=== PATIENT | female | born 1995 | race Caucasian/White ===

== ENCOUNTER 2020-10-28 07:21 | Emergency (ER) | payer OTHER ==
[~2020-10-28] VITALS: Ht 160 cm; Wt 54.4 kg
[2020-10-28] MEDS ORDERED: SERT100T PO (07:29)
--- NOTE | 2020-10-28 07:40 | NUR ---
at bedside for assessment
[2020-10-28] MEDS ORDERED: IV NORMAL SALINE 1000 ML BAG IV ONE ×2 (07:45→08:30)
[2020-10-28] MEDS ORDERED: KETOROLAC TROMETHAMINE 30 MG INJ IVP ONE (07:45)
[2020-10-28] MEDS ORDERED: ONDANSETRON 4 MG/2 ML VIAL IV ONE (07:45)
[2020-10-28] MEDS ORDERED: KETOROLAC TROMETHAMINE 30 MG INJ ONE (07:55)
[2020-10-28] MEDS ORDERED: ONDANSETRON 4 MG/2 ML VIAL ONE (07:55)
[2020-10-28 08:02] LABS: BASOPHILS % (AUTO) 0.2 % (0.0-2.0); HEMATOCRIT 39.5 % (31.2-41.9); HEMOGLOBIN 13.5 g/dL (10.9-14.3); LYMPHOCYTES # (AUTO) 0.6 K/uL (20.0-40.0); LYMPHOCYTES % (AUTO) 3.5 % (20.5-51.5); MEAN CORPUSCULAR HEMOGLOBIN 29.3 uug (24.7-32.8); MEAN CORPUSCULAR HGB CONC 34 g/dL (32.3-35.6); MEAN CORPUSCULAR VOLUME 85.7 fL (75.5-95.3); MONOCYTES # (AUTO) 0.6 K/uL (2.0-10.0); MONOCYTES % (AUTO) 3.3 % (0.0-11.0); NEUTROPHILS # (AUTO) 16.2 K/uL (1.8-8.9); PLATELET COUNT (AUTO) 308 K/uL (179-408); RED BLOOD CELL COUNT(AUTO) 4.61 MIL/uL (3.63-4.92); WHITE BLOOD COUNT (AUTO) 17.4 K/uL (3.8-11.8)
[2020-10-28 08:06] LABS: ALANINE AMINOTRANSFERASE 27 U/L (14-59); ALKALINE PHOSPHATASE 53 U/L (50-136); ASPARTATE AMINOTRANSFERASE 14 U/L (15-37); BILIRUBIN,DIRECT 0.2 mg/dL (0.0-0.2); BILIRUBIN,TOTAL 0.6 mg/dL (0.2-1.0); CARBON DIOXIDE 24 mmol/L (21-32); CHLORIDE 101 mmol/L (98-107); CREATININE 0.7 mg/dL (0.6-1.3); GLUCOSE 133 mg/dL (74-106); POTASSIUM 3.7 mmol/L (3.5-5.1); TOTAL PROTEIN, SERUM 7.8 g/dL (6.4-8.2); UREA NITROGEN, BLOOD 8 mg/dL (7-18)
--- NOTE | 2020-10-28 08:29 | NUR ---
Ultrasound noted at bedside for US of abdomen
[2020-10-28 08:40] LABS: *BILIRUBIN,URIN NEGATIVE (NEGATIVE); *BLOOD, URINE NEGATIVE (NEGATIVE); *CLARITY,URINE CLEAR (CLEAR); *COLOR,URINE YELLOW (YELLOW); *KETONES,URINE NEGATIVE (NEGATIVE); *UROBILINOGEN,URINE 0.2 E.U./dl (NORMAL); LEUKOCYTE ESTERASE ,URINE NEGATIVE (NEGATIVE); NITRITE, URINE NEGATIVE (NEGATIVE); PH,URINE 7.5 (5.0-8.0); UGLUCOSE 3+ (NEGATIVE)
--- NOTE | 2020-10-28 08:52 | NUR ---
US finished at this time
[2020-10-28] MEDS ORDERED: ONDA4TAB11 PO (09:54)
--- NOTE | 2020-10-28 10:07 | NUR ---
PATIENT DISCHARGED, STABLE AND STEADY GAIT. VSS. GIVEN DISCHARGE INSTRUCTIONS AND PAPERWORK, VERBALIZED UNDERSTANDING. IV REMOVED, NO S/S OF BLEEDING NOTED.
[2020-10-28 10:08] VITALS: BP 126/67
== END 2020-10-28 10:07 | disposition home or self-care (01) ==
LOC: ER 07:21
DX: R10.31 Right lower quadrant pain (principal); Z97.5 Presence of (intrauterine) contraceptive device
CPT/HCPCS: 36415; 76705; 76856; 80048; 80076; 81003; 84702; 85025; 96361; 96374; 96375; 99285; J1885; J2405; A4663; J7030